=== PATIENT | female | born 1960 | race Caucasian/White ===

== ENCOUNTER 2021-11-19 16:40 | Emergency (ER) | payer BC, MEDICAID ==
[2021-11-19] MEDS: Ondansetron 4 MG/2 ML SDV IVPUSH PRN (16:57)
[2021-11-19] MEDS: Sodium Chloride 0.9% 1,000 ML IV ONE (16:57)
[2021-11-19 17:13] VITALS: BP 124/75; PULSE 86
[2021-11-19] MEDS ORDERED: Take Home: Meclizine 12.5 MG Tab, 4 Tab Pack ONE (17:18)
[2021-11-19] MEDS: Pantoprazole 40 MG Vial IVPUSH SCH (17:39)
[2021-11-19] MEDS: Take Home: Ondansetron 4 MG Tab.DIS, 2 Tab Pack PO ONE (17:51)
[2021-11-19] MEDS: Take Home: Meclizine 12.5 MG Tab, 4 Tab Pack PO ONE (17:51)
== END 2021-11-19 18:27 | disposition home or self-care (01) ==
LOC: CC.ED 16:40
DX: K21.9 Gastro-esophageal reflux disease without esophagitis (principal); I10 Essential (primary) hypertension; Z88.8 Allergy status to other drugs, medicaments and biological substances; Z79.899 Other long term (current) drug therapy
CPT/HCPCS: 36415; 80053; 85025; 96361; 96374; 96375; 99284; 99284-25; A9270-GY; C9113; J2405; J7030